=== PATIENT | female | born 2000 | race Caucasian/White ===

== ENCOUNTER 2021-02-17 23:09 | Emergency (ER) | payer OTHER | END 2021-02-18 00:20 | disposition home or self-care (01) | LOC: ERS 23:09 | DX: S83.005A Unspecified dislocation of left patella, initial encounter (principal); X50.9XXA Other and unspecified overexertion or strenuous movements or postures, initial encounter; Y93.41 Activity, dancing | CPT/HCPCS: 27560 ==